=== PATIENT | male | born 1970 | race Caucasian/White ===

== ENCOUNTER 2018-07-31 15:20 | Outpatient (REF) | payer MEDICAID, SELFPAY ==
[2018-07-31 22:45] LABS: Cholesterol 220 mg/dL (50-200); HDL Cholesterol 45 mg/dL (40-60); LDL CHOLESTEROL 155 mg/dL (<100); Triglyceride 173 mg/dL (30-150)
== END 2018-07-31 15:40 ==
LOC: NCHCN 15:20
PROVIDERS: Visit Provider Internal Medicine
DX: Z13.220 Encounter for screening for lipoid disorders (principal); Z00.00 Encounter for general adult medical examination without abnormal findings
CPT/HCPCS: 80061; 83721

== ENCOUNTER 2020-06-02 11:25 | Outpatient (REF) | payer MEDICAID, SELFPAY ==
[2020-06-02 21:49] LABS: Hemoglobin A1C 5.5 % (<5.7)
[2020-06-02 21:50] LABS: Calculated LDL 181 mg/dL (<100); Cholesterol 260 mg/dL (<200); Glucose 107 mg/dL (74-106); HDL Cholesterol 67 mg/dL (40-60); Triglyceride 61 mg/dL (<150)
[2020-06-03 17:35] LABS: CRP, High Sensitivity 2.57 mg/L (See Note)
[2020-06-03 18:08] LABS: T3, Total 124 ng/dL (97-169)
== END 2020-06-02 11:45 ==
LOC: NCHCN 11:25
PROVIDERS: Visit Provider Internal Medicine
DX: Z13.1 Encounter for screening for diabetes mellitus (principal); Z13.29 Encounter for screening for other suspected endocrine disorder; Z13.220 Encounter for screening for lipoid disorders; Z82.49 Family history of ischemic heart disease and other diseases of the circulatory system
CPT/HCPCS: 80061; 81401; 82947; 86141; 83036; 84480

== ENCOUNTER 2021-09-06 16:05 | Outpatient (REF) | payer MEDICAID, SELFPAY ==
[2021-09-06 15:13] LABS: HCT 48.4 % (40.0-50.0); MCH 30.2 pg (27.0-33.0); MCHC 33.1 % (32.0-36.0); MCV 91.5 fL (80-95); MPV 9.1 fL (8.0-11.0); Platelet Count 259 10^3/uL (130-400); RBC 5.29 10^6/uL (4.36-5.78); RDW 12.9 % (11.8-14.1); RDW-SD 43.6 fL; WBC 5.92 10^3/uL (4.4-10.8)
[2021-09-06 15:39] LABS: ALT 44 U/L (16-63); AST 24 U/L (15-37); Albumin 4.1 g/dL (3.4-5.0); Alkaline Phosphatase 65 U/L (46-116); Anion Gap 11.1 mmol/L (3-11); BUN 17 mg/dL (7-18); Bilirubin, Total 0.7 mg/dL (0.2-1.0); CO2 25.9 mmol/L (21.0-32.0); CREATININE 1.1 mg/dL (0.70-1.30); Calcium 9.2 mg/dL (8.5-10.1); Calculated LDL 196 mg/dL (<100); Chloride 101 mmol/L (98-107); Cholesterol 279 mg/dL (<200); Glucose 107 mg/dL (74-106); HDL Cholesterol 58 mg/dL (40-60); Potassium 4.4 mmol/L (3.5-5.1); Sodium 138 mmol/L (136-145); Total Protein 7.6 g/dL (6.4-8.2); Triglyceride 129 mg/dL (<150)
[2021-09-07 12:50] LABS: Hepatitis C Ab w Rflx HCV PCR Negative (Negative)
[2021-09-07 14:36] LABS: HIV-1/2 Ag & Ab Screen Negative (Negative)
== END 2021-09-06 16:06 | disposition home or self-care (01) ==
LOC: NCHCN 16:05
PROVIDERS: Visit Provider Family Medicine
DX: E78.5 Hyperlipidemia, unspecified (principal); R03.0 Elevated blood-pressure reading, without diagnosis of hypertension; Z11.4 Encounter for screening for human immunodeficiency virus [HIV]; Z11.59 Encounter for screening for other viral diseases
CPT/HCPCS: 80053; 80061; 85027; 86803; 87389

== ENCOUNTER 2022-11-29 10:37 | Outpatient (REF) | payer MEDICAID, SELFPAY ==
[2022-11-29 15:08] LABS: TSH (W/Ref FT4) 2.91 uIU/mL (0.36-3.74)
== END 2022-11-29 10:38 | disposition home or self-care (01) ==
LOC: NCHCN 10:37
PROVIDERS: Visit Provider Family Medicine
DX: R03.0 Elevated blood-pressure reading, without diagnosis of hypertension (principal); E78.5 Hyperlipidemia, unspecified
CPT/HCPCS: 84443

== ENCOUNTER 2024-06-16 16:29 | Outpatient (REF) | payer MEDICAID, SELFPAY ==
[2024-06-16 15:19] LABS: Abs Immature Grans 0.01 10^3/uL (0.0-0.06); Absolute Basophil Count 0.03 10^3/uL (0.0-0.2); Absolute Eosinophil Count 0.05 10^3/uL (0.0-0.7); Absolute Lymphocyte Count 1.51 10^3/uL (1.2-3.4); Absolute Monocyte Count 0.31 10^3/uL (0.1-0.8); Absolute Neutrophil Count 1.96 10^3/uL (1.2-6.7); Basophils % 0.8 %; Eosinophils % 1.3 %; HCT 42.9 % (40.0-50.0); HGB 14.5 g/dL (13.5-17.5); Immature Grans % 0.3 %; MCH 31.4 pg (27.0-33.0); MCHC 33.8 % (32.0-36.0); MCV 93 fL (80-95); MPV 9.2 fL (8.0-11.0); Neutrophils % 50.6 %; Platelet Count 204 10^3/uL (130-400); RBC 4.62 10^6/uL (4.36-5.78); RDW 12.4 % (11.8-14.1); RDW-SD 42.3 fL; WBC 3.87 10^3/uL (4.4-10.8)
[2024-06-16 15:55] LABS: Hemoglobin A1C 5.4 % (<5.7)
[2024-06-16 16:02] LABS: ALT 42 U/L (16-63); AST 28 U/L (15-37); Alkaline Phosphatase 84 U/L (46-116); Anion Gap 11.8 mmol/L (3-11); BUN 13 mg/dL (7-18); Bilirubin, Total 0.52 mg/dL (0.2-1.0); CO2 24.2 mmol/L (21.0-32.0); CREATININE 1.2 mg/dL (0.70-1.30); Calcium 9.2 mg/dL (8.5-10.1); Chloride 106 mmol/L (98-107); Estimated GFR 70.98 (mL/min/1.73m2); Glucose 86 mg/dL (74-106); LDL CHOLESTEROL 160 mg/dL (<100); Potassium 3.8 mmol/L (3.5-5.1); Sodium 142 mmol/L (136-145); Total Protein 7.6 g/dL (6.4-8.2)
== END 2024-06-16 16:30 | disposition home or self-care (01) ==
LOC: NCHCN 16:29
PROVIDERS: Visit Provider Family Medicine
DX: R73.03 Prediabetes (principal); E78.5 Hyperlipidemia, unspecified; I10 Essential (primary) hypertension
CPT/HCPCS: 80053; 83721; 83036; 85025

== ENCOUNTER 2024-07-20 15:49 | Outpatient (REF) | payer MEDICAID, SELFPAY ==
[2024-07-20 17:13] LABS: BUN 15 mg/dL (7-18); CREATININE 1.2 mg/dL (0.70-1.30); Calcium 9.6 mg/dL (8.5-10.1); Chloride 102 mmol/L (98-107); Estimated GFR 70.98 (mL/min/1.73m2); Glucose 121 mg/dL (74-106); Potassium 3.7 mmol/L (3.5-5.1); Sodium 137 mmol/L (136-145)
[2024-07-20 17:37] LABS: Anion Gap 12.3 mmol/L (3-11); CO2 22.7 mmol/L (21.0-32.0)
== END 2024-07-20 15:50 | disposition home or self-care (01) ==
LOC: NCHCN 15:49
PROVIDERS: Visit Provider Family Medicine
DX: I10 Essential (primary) hypertension (principal)
CPT/HCPCS: 80048

== ENCOUNTER 2025-07-26 11:49 | Outpatient (REF) | payer MEDICAID, SELFPAY ==
[2025-07-26 16:14] LABS: ALT 43 U/L (10-49); AST 33 U/L (<34); Albumin 4.4 g/dL (3.2-5.0); Alkaline Phosphatase 76 U/L (46-116); Anion Gap 10.6 mmol/L (3-11); BUN 18 mg/dL (9-23); Bilirubin, Total 1.30 mg/dL (0.2-1.2); CO2 24.4 mmol/L (20.0-31.0); Calcium 9.3 mg/dL (8.3-10.6); Chloride 104 mmol/L (98-107); Cholesterol 246 mg/dL (<200); Glucose 109 mg/dL (74-106); HDL Cholesterol 68 mg/dL (>40); Potassium 4.0 mmol/L (3.5-5.1); Sodium 139 mmol/L (136-145); Total Protein 7.2 g/dL (5.7-8.2)
== END 2025-07-26 11:50 | disposition home or self-care (01) ==
LOC: NCHCN 11:49
PROVIDERS: Visit Provider Family Medicine
DX: I10 Essential (primary) hypertension (principal); E78.5 Hyperlipidemia, unspecified
CPT/HCPCS: 80053; 80061